=== PATIENT | female | born 1965 | race Hispanic/Latino ===

== ENCOUNTER → 2021-09-23 | Outpatient (CLI) | payer OTHER | LOC: RAH 13:17 | PROVIDERS: ATTEND Internal Medicine Cardiovascular Disease | DX: Z13.6 Encounter for screening for cardiovascular disorders (principal) | CPT/HCPCS: 75571 ==

== ENCOUNTER → 2021-11-11 | Outpatient (CLI) | payer OTHER | END | disposition home or self-care (01) | LOC: EDUNIT# 10-13 10:30 → SHCH 10:54 | PROVIDERS: ATTEND Internal Medicine Cardiovascular Disease | DX: I51.7 Cardiomegaly (principal); E66.9 Obesity, unspecified | CPT/HCPCS: 93306 ==

== ENCOUNTER 2023-05-19 06:08 | Day surgery (SDC) | payer OTHER ==
[~2023-05-19] VITALS: Ht 160 cm; Wt 105.6 kg
[2023-05-19] VITALS (10 sets, daily range): BP systolic 105–130; BP diastolic 60–74; PULSE 54–63; RESP 11–16
[~2023-05-19 06:08] MED LIST: BUPR-317 PO; DULO30CA52 PO; DULO60CA64 PO; GABA600T10 PO; HYDR200T82 PO; TRAZ-185 PO
[2023-05-19] MEDS ORDERED: PROPOFOL 10 MG/ML 20ML VIAL IV ONE ×2 (07:25→08:04)
== END 2023-05-19 09:30 | disposition home or self-care (01) ==
LOC: DAH 06:08
PROVIDERS: ATTEND Internal Medicine Gastroenterology
DX: R12 Heartburn (principal); K29.50 Unspecified chronic gastritis without bleeding; K21.9 Gastro-esophageal reflux disease without esophagitis; K22.89 Other specified disease of esophagus; F41.9 Anxiety disorder, unspecified; F32.A Depression, unspecified; M81.0 Age-related osteoporosis without current pathological fracture; M79.7 Fibromyalgia; M15.9 Polyosteoarthritis, unspecified; E66.01 Morbid (severe) obesity due to excess calories; Z79.899 Other long term (current) drug therapy; Z79.01 Long term (current) use of anticoagulants; Z98.84 Bariatric surgery status; Z68.41 Body mass index [BMI] 40.0-44.9, adult
CPT/HCPCS: 84703; 36415; 43239; J2704 ×2; A4620; A4215 ×2; A4223; A7002; A4222; A4221; A4663; J7030; A4606; J3490

== ENCOUNTER → 2024-08-14 | Outpatient (CLI) | payer MEDICAID, OTHER ==
[~2024-08-14] MED LIST changes: -BUPR-317 PO; +BUPR-561 PO; +GABA-1405 PO; -GABA600T10 PO; +GADOTERATE MEGLUMINE 10 MMOL/20 ML VIAL IV ONE
--- NOTE | 2024-08-14 12:22 | HMCIMG ---
MRI BRAIN WITHOUT CONTRAST INDICATION: M53.462 Homonymous bilateral field defects, left side COMPARISON: None. TECHNIQUE: Noncontrast multisequence multiplanar imaging of the brain. FINDINGS: The brain parenchyma appears normal in signal intensity without evidence for acute ischemia, hemorrhage or mass lesion. No hydrocephalus or extra-axial fluid collection identified. The pituitary, cavernous sinus, hypothalamic and pineal regions appear normal. The cranial-cervical junction, atlanto-dens interval and position of the cerebellar tonsils are within normal limits. Cranial nerve VII/VIII complexes appear normal without evidence for gross intracanalicular or cerebellar-pontine angle lesion. 1.7 cm right maxillary sinus floor mucus retention cyst.. Calvarium appears normal. IMPRESSION: No acute intracranial process identified.
== END | disposition home or self-care (01) ==
LOC: RAH 08:57
PROVIDERS: ATTEND Family Medicine
DX: H53.462 Homonymous bilateral field defects, left side (principal); J34.1 Cyst and mucocele of nose and nasal sinus
CPT/HCPCS: 70553; A9575

== ENCOUNTER → 2024-12-19 | Outpatient (CLI) | payer MEDICAID ==
[~2024-12-19] MED LIST changes: -BUPR-561 PO; +BUPR-721 PO; -GADOTERATE MEGLUMINE 10 MMOL/20 ML VIAL IV ONE
== END | disposition home or self-care (01) ==
LOC: RAH 08:58
PROVIDERS: ATTEND Family Medicine
DX: Z78.0 Asymptomatic menopausal state (principal)
CPT/HCPCS: 77080